=== PATIENT | female | born 1970 | race Caucasian/White ===

== ENCOUNTER 2018-08-18 12:55 | Inpatient (IN) | payer MEDICAID ==
[~2018-08-18] VITALS: Ht 162.6 cm; Wt 71.2 kg
[~2018-08-18 12:55] MED LIST: CEPHALEXIN 500500 M3 PO; COMPAZINE10 MG PO; CONSTULOSE10 GM/15 M; FENOFIBRATE; FLEXERIL; GLIPIZIDE 10 MG10 MG; LEVAQUIN 500 M500 MG PO; LIORESAL 10 MG10 MG; METFORMIN; MOVANTIK12.5 MG PO; MS CONTIN15 MG; NEURONTIN 300300 M1; NOHOMEMEDICATIONS; OMEPRAZOLE 20 M20 M1 PO; OMEPRAZOLE40 MG; PRAVACHOL40 MG PO; PYRIDIUM200 MG PO; REGLAN 10 MG TA10 MG PO; TOPAMAX 25 MG T25 M1
[2018-08-18 13:14] VITALS: BP 162/106
[2018-08-18] MEDS ORDERED: METFORMIN HCL500 MG PO (13:48)
[2018-08-18] MEDS ORDERED: NEURONTIN 300300 M1 PO (13:49)
[2018-08-18 13:53] LABS: ABSOLUTE BASOPHILS 0.2 thou/uL (0.0-0.2); ABSOLUTE EOSINOPHILS 0.1 thou/uL (0.0-0.7); ABSOLUTE LYMPHOCYTES 2.2 thou/uL (0.8-5.3); ABSOLUTE MONOCYTES 0.9 thou/uL (0.0-1.2); ABSOLUTE NEUTROPHILS 10.9 thou/uL (1.6-8.1); BASOPHILS 1.2 %; HEMATOCRIT 43.9 % (37.0-47.0); HEMOGLOBIN 14.2 gm/dL (12.0-15.0); LYMPHOCYTES 15.6 %; MCH 26.4 pg (26.0-34.0); MCHC 32.3 g/dL (28.0-37.0); MCV 81.7 fL (80.0-100.0); MONOCYTES 6.4 %; MPV 8.5 fl. (7.2-11.1); NUCLEATED RBCS 0 /100WBC; PLATELET COUNT* 361 thou/uL (150-400); POLYS 75.8 %; RBC 5.37 mil/uL (4.20-5.00); WBC 14.4 thou/uL (4.0-11.0)
[2018-08-18 14:00] LABS: CALCIUM 9.7 mg/dL (8.5-10.1); CREATININE 0.9 mg/dL (0.6-1.3); POTASSIUM 3.9 mmol/L (3.5-5.1)
[2018-08-18] MEDS ORDERED: MS CONTIN 60 MG60 M1 PO (14:00)
[2018-08-18] MEDS ORDERED: LIPITOR40 MG PO (14:01)
[2018-08-18] MEDS ORDERED: VOLTAREN GEL 1100 G2 TOP (14:01)
[2018-08-18] MEDS ORDERED: GLIPIZIDE 10 MG10 MG PO ×2 (14:02→14:03)
[2018-08-18] MEDS ORDERED: MOBIC15 MG PO (14:02)
[2018-08-18] MEDS ORDERED: FENOFIBRATE160 MG PO (14:02)
[2018-08-18 14:05] LABS: ALBUMIN 3.8 g/dL (3.4-5.0); TOTAL BILIRUBIN 0.5 mg/dL (<0.1-1.0); TOTAL PROTEIN 7.7 g/dL (6.4-8.2)
[2018-08-18 15:52] LABS: URINE BILIRUBIN NEGATIVE (Negative); URINE BLOOD NEGATIVE (Negative); URINE CLARITY SL CLOUDY; URINE COLOR YELLOW; URINE GLUCOSE-RANDOM NEGATIVE (Negative); URINE KETONES NEGATIVE (Negative); URINE LEUKOCYTES-REFLEX NEGATIVE (Negative); URINE NITRITE-REFLEX NEGATIVE (Negative); URINE PROTEIN NEGATIVE (Negative); URINE SPECIFIC GRAVITY 1.015 (1.005-1.030)
[2018-08-18 15:58] LABS: AMP/METHAMP Negative (Negative); BARBITURATES Negative (Negative); BENZODIAZEPINES Negative (Negative); COCAINE Negative (Negative); METHADONE Negative (Negative); OPIATES POSITIVE (Negative); PCP Negative (Negative); THC Negative (Negative)
[2018-08-18 16:00] LABS: SQUAMOUS 4-10 Moderate /LPF (0-3); URINE WBC-REFLEX 0-5 Rare /HPF (0-5)
[2018-08-18 16:01] LABS: BACTERIA-REFLEX >30 Many /HPF (None Seen); CASTS None Seen /LPF (None Seen); CRYSTALS None Seen /LPF (None Seen); MUCUS 4-6 Moderate strn/LPF (None Seen); URINE RBC None Seen /HPF (0-2)
[2018-08-18 16:55] LABS: BE 3.2 mmol/L (-2 to +3); PO2 79.9 mmHg (75.0-100.0); pH 7.445 (7.340-7.450)
--- NOTE | 2018-08-18 18:37 | NUR ---
RESTRAINT DOCUMENTATION ON PAPER. RESTRAINTS REMOVED [id number]
[2018-08-18 19:50] VITALS: BP 141/79
[2018-08-18 21:01] VITALS: BP 111/58
[2018-08-18 22:00] VITALS: BP 115/58
[2018-08-18 23:00] VITALS: BP 127/69
[2018-08-19] VITALS (12 sets, daily range): BP systolic 117–141; BP diastolic 64–106
[2018-08-19 05:06] LABS: CHOLESTEROL 121 mg/dL (<200); HDL CHOLESTEROL 20 mg/dL (>40); LDL CHOLESTEROL 65 mg/dL (<100); SERUM ASSESSMENT CLEAR; TC:HDL 6.1 Ratio (Not establshd); TRIGLYCERIDE 180 mg/dL (<150); VLDL 36 mg/dL (<40)
--- NOTE | 2018-08-19 06:20 | NUR ---
PT ADMITTED TO ICU AT 1930 FOR OVERDOSE. PT ON NARCAN DRIP INFUSING AT 1 MG/HR. PT AROUSES TO TOUCH AND VOICE, RESPONDS APPROPRIATELY. PT ORIENTED TO PERSON, PLACE AND SITUATION. PT DENIES INTENTIONAL OVERDOSE. HEART RATE AND BLOOD PRESSURE WITHIN NORMAL LIMITS DURING SHIFT. PT'S O2 SAT 95-98% ON ROOM AIR DURING SHIFT. DR LEE IN UNIT TO ASSES PT AFTER ADMISSION. PT SOMULANT AT THAT TIME. PT MORE ALERT AFTER 0100. PT USING CALL LIGHT APPROPRIATELY. PT REQUESTED NEURONTIN NUMEROUS TIMES DURING SHIFT. PT INFORMED TO PAIN MEDS DUE TO OVERDOSE.
--- NOTE | 2018-08-19 13:01 | NUR ---
WOUND NURSE: PATIENT SEEN TO ADDRESS A 2ND DEGREE BURN COVERING BILATERAL BUTTOCKS AND MEASURING 6.0 X 11.5 X 0.5. THERE IS A MODERATE TO LARGE AMOUNT OF SEROUSANGUINOUS DRAINAGE ON OLD DRESSING. PRESENTS WITH PINK PARTIAL THICKNESS TISSUE LOSS, NO PERIWOUND REDNESS, WARMTH, OR INDURATION. THERE IS NO ODOR. PATIENT REPORTING MILD PAIN AT TIME OF DRESSING CHANGE. STATES WOUND IS 3 TO 5 DAYS OLD AND CAUSED BY A TANNING BED. CLEANSED WITH SOAP AND WATER, RINSED WITH WATER, THEN PATTED DRY. APPLIED OPTIFOAM GENTLE AG DRESSING TO THE WOUND, THEN SECURED IN PLACE WITH A STR[place] DRESSING. PLAN TO CHANGE DRESSING 2X/WEEK AND PRN WHILE HOSPITALIZED.
[2018-08-19 16:07] LABS: GLYCOHEMOGLOBIN (HGB A1C) 7.2 % (4.8-5.6)
--- NOTE | 2018-08-19 16:10 | NUR ---
CM COMPLETED INITIAL ASSESSMENT TO DISCUSS D/C PLANS. PT A&OX4. AMBULATING IN ROOM. CM ASSESSED TO SEE HOW OVERDOSE OCCURED. PT EXPLAINED SHE PUT ALL OF HER PM MEDS IN A CONTAINER TO TAKE THEM. WHEN SHE SAT DOWN IN THE LIVING ROOM SHE SAW A "STRAGGLER" SHE TOOK AN ADD'L MORPHINE PILL THAT SHE THOUGHT FELL OUT OF HER CONTAINER. PT DENIES THE NEED FOR ANY RESOURCES. HAS NO HX W/SNF OR HH. WHEN CM ASKED IF PT HAD HX W/SNF, PT BECAME DEFENSIVE AND STATED, SHE WAS GOING THERE. PT HAS 0 DMEs. PT HAS SUPPORT FROM FAMILY AND FRIENDS. LIVES W/BOYFRIEND AND SON. NO ANTICIPATED NEEDS AT THIS TIME. CM TO REMAIN AVAILABLE TO PROVIDE SUPPORT NEEDED.
--- NOTE | 2018-08-19 16:10 | NUR ---
PATIENT TRANSFERRED FROM ICU TO ROOM 117 VIA WHEELCHAIR AT 1540. AGREE WITH PREVIOUS ASSESSMENT. LUNGS CLR, HRR, BS+ IN ALL 4 QUADRANTS. IV NOTED TO RIGHT FA, SL. PATIENT'S DRESSING TO COCCYX INTACT. PATIENT DENIES ANY NEEDS. ORIENTED TO NEW ROOM ENVIRONMENT. CALL LIGHT WITHIN REACH. WILL CONTINUE WITH PLAN OF CARE.
--- NOTE | 2018-08-19 16:43 | NUR ---
PATIENT ALERT AND ORIENTED X4. NARCAN DRIP STOPPED AT 0730. VSS. O2 SATS >95% IN RA. PT WIDE AWAKE AND NOT DROWSY AT ALL. AT 0800 BLOOD SUGAR 47, CORRECTED BY 15 GMS OF SUGAR AND 250 MLS OF APPLE JUICE. TOLERATED SIPS, ADVANCED TO CARB CONTROL DIET. CASE MGMT NOTIFIED ABOUT THE CONSULT. SPRINGER'S CATH OUT AT 1300, PT HAS NOT VOIDED POST CATH OUT. REPORT GIVEN TO RN AT [facility].
--- NOTE | 2018-08-19 17:25 | NUR ---
PATIENT HAS BEEN A/O X 4 SINCE TRANSFERRING FROM THE ICU. PATIENT'S APPETITE POOR. SALINE LOCK PATENT. CALL LIGHT WITHIN REACH. WILL CONTINUE WITH PLAN OF CARE.
[2018-08-20] VITALS: BP 153/85
--- NOTE | 2018-08-20 06:07 | NUR ---
PT SLEPT OFF AND ON OVERNIGHT, SO HERE VISITING AT HS. PT UP AD MARIBELL IN ROOM. RFA SL IV. HS ACCUCHECK 109, NO INSULIN OR GLIPIZIDE GIVEN PER PT REQUEST. DRSG INTACT TO BUTTOCKS. ANTICIPATING DISCHARGE HOME TODAY. HAS DENIED PAIN OR PROBLEMS THIS SHIFT.CALL LITE IN EASY REACH.
--- NOTE | 2018-08-20 07:20 | NUR ---
PT STATES SHE DIDNT SLEEP VERY WELL. MYLANTA GIVEN FOR REFLUX. CO NECK AND BACK PAIN, REFUSING DICLOFENAC.PO MEDS GIVEN. UP AD MARIBELL IN ROOM. DRSG CDI TO BUTTOCKS. PT CO N/V THIS MORNING,ZOFRAN GIVEN AND TYLENOL FOR CO BACK PAIN.PT STATES SHE HOPES SHE GETS TO GO HOME TODAY. ABLE TO USE CALL LITE AND MAKE NEEDS KNOWN, ENCOURAGED TO LET STAFF KNOW IF SHE IS HAVING ANY PAIN OR PROBLEMS.
[2018-08-20 07:40] VITALS: BP 142/91
[2018-08-20] MEDS ORDERED: ASPIR 8181 MG PO (10:32)
[2018-08-20 11:19] VITALS: BP 142/91
[2018-08-20 11:37] VITALS: BP 142/91
--- NOTE | 2018-08-20 12:00 | NUR ---
CALL PLACED TO DR VELÁSQUEZ'S OFFICE, PT'S PCP TO NOTIFY OF ADMIT AND DX. FAXED H/P AND DC SUMMARY TO HIS OFFICE AND LEFT VMAIL WITH HIS NURSE.
--- NOTE | 2018-08-20 12:27 | NUR ---
ASSESSMENT COMPLETE. PT ALERT AND ORIENTED X4. REFUSED BLOOD SUGAR MEDICATIONS THIS MORNING. PT GIVEN DC INSTRUCTIONS AND VERBALIZES UNDERSTANDING, WILL FOLLOW UP WITH PCP WITHIN A WEEK. PRESCRIPTION FOR ASPIRIN GIVEN. PT IV TAKEN OUT WITHOUT COMPLICATIONS. ALL BELONGINGS SENT WITH PATIENT. PT DC HOME WITH PARTNER. SEE ASSESSMENT AND VITALS FOR OTHER DETAILS.
[2018-08-20 12:54] VITALS: BP 142/91
== END 2018-08-20 12:40 | disposition home or self-care (01) | DRG 917 ==
LOC: M.ERS 12:55 → M.TBA-ER 15:28 → M.ICU 15:28 → M.ORTHSURG 08-19 15:32
PROVIDERS: Personal Emergency Response Attendant; ADMIT Internal Medicine
DX: T40.2X1A Poisoning by other opioids, accidental (unintentional), initial encounter (principal); G92 Toxic encephalopathy; J96.90 Respiratory failure, unspecified, unspecified whether with hypoxia or hypercapnia; E87.0 Hyperosmolality and hypernatremia; G43.909 Migraine, unspecified, not intractable, without status migrainosus; F32.9 Major depressive disorder, single episode, unspecified; F17.210 Nicotine dependence, cigarettes, uncomplicated; G89.29 Other chronic pain; E11.40 Type 2 diabetes mellitus with diabetic neuropathy, unspecified; D72.829 Elevated white blood cell count, unspecified; L98.9 Disorder of the skin and subcutaneous tissue, unspecified; Y92.89 Other specified places as the place of occurrence of the external cause; Z90.89 Acquired absence of other organs; Z90.710 Acquired absence of both cervix and uterus; Z79.899 Other long term (current) drug therapy; Z79.84 Long term (current) use of oral hypoglycemic drugs; Z86.73 Personal history of transient ischemic attack (TIA), and cerebral infarction without residual deficits